=== PATIENT | female | born 1970 | race Asian ===

== ENCOUNTER 2018-10-04 16:13 | Inpatient (IN) | payer MEDICAID, OTHER ==
[~2018-10-04 16:13] MED LIST: ACET-2744 PO; ALBU17AE16 IH; AMLO5TAB66 PO; ESCI10TA PO; ESOM20CA31 PO; LISI-618 PO; LORA0.5T83 PO
[2018-10-04] MEDS ORDERED: LORazepam 2 MG TABLET PO PRN (17:00)
[2018-10-04] MEDS ORDERED: HALOPERIDOL 5 MG TABLET PO PRN (17:00)
[2018-10-04] MEDS ORDERED: ZOLPIDEM TARTRATE 10 MG TABLET PO PRN (17:00)
[2018-10-04] MEDS ORDERED: ATOR20TA86 PO (17:12)
[2018-10-04] MEDS ORDERED: AMLO-511 PO (17:12)
[2018-10-04] MEDS ORDERED: METO25 PO (17:12)
[2018-10-04] MEDS ORDERED: CLON-570 PO (17:12)
[2018-10-04] MEDS ORDERED: HYDR25TA PO (17:12)
[2018-10-04 18:15] VITALS: BP 144/96
[2018-10-04] MEDS ORDERED: GLUCAGON,HUMAN RECOMBINANT 1 MG VIAL IM PRN (20:15)
[2018-10-04] MEDS ORDERED: INSULIN LISPRO 100 UNITS/ML SQ PRN (20:15)
[2018-10-04 20:33] VITALS: BP 131/80
[2018-10-04] MEDS: IBUPROFEN 600 MG TABLET PO PRN (20:35)
[2018-10-05 03:07] VITALS: BP 136/78
[2018-10-05 06:24] LABS: GLUCOMETER DEV NAME(LOC) BV3S.; GLUCOSE,POINT OF CARE 81 MG/DL (70-110)
[2018-10-05 08:25] VITALS: BP 122/69
[2018-10-05] MEDS: LISINOPRIL 10 MG TABLET PO SCH ×2 (08:30→16:33)
[2018-10-05 08:39] LABS: BASOPHILS % (AUTO) 2.6 % (0.0-2.0); EOSINOPHILS % (AUTO) 2.7 % (1.0-6.0); HEMOGLOBIN 15.6 g/dL (12.0-16.0); LYMPHOCYTES # (AUTO) 1.6 K/uL (1.0-4.8); LYMPHOCYTES % (AUTO) 20.3 % (22.0-44.0); MEAN CORPUSCULAR HEMOGLOBIN 30.7 pg (26.0-34.0); MEAN CORPUSCULAR HGB CONC 33.1 G/dL (31.0-37.0); MEAN CORPUSCULAR VOLUME 93 fL (80-100); MONOCYTES # (AUTO) 0.4 K/uL (0.1-1.0); MONOCYTES % (AUTO) 5.5 % (2.0-9.0); NEUTROPHILS # (AUTO) 5.6 K/uL (1.8-7.7); NEUTROPHILS % (AUTO) 68.9 % (40.0-70.0); PLATELET COUNT (AUTO) 176 K/uL (150-450); RED BLOOD CELL COUNT(AUTO) 5.08 MIL/uL (4.00-5.20); RED CELL DISTRIBUTION WIDTH 13.1 % (11.5-14.5)
[2018-10-05 08:51] LABS: HEMOGLOBIN A1C 5.8 % (4.5-6.2)
[2018-10-05] MEDS ORDERED: NAPROXEN 500 MG TABLET PO PRN (09:00)
[2018-10-05 09:06] LABS: ALANINE AMINOTRANSFERASE 45 U/L (12-78); ALBUMIN 4.7 g/dL (3.4-5.0); ALKALINE PHOSPHATASE 63 U/L (46-116); ANION GAP 12 mmol/L (8-16); ASPARTATE AMINOTRANSFERASE 29 U/L (15-37); BILIRUBIN,TOTAL 0.7 mg/dL (0.1-1.0); CALCIUM, TOTAL 9.8 mg/dL (8.8-10.5); CARBON DIOXIDE 27 mmol/L (22-29); CHLORIDE 99 mmol/L (98-107); CHOL/HDL RATIO 1.8 (3.9-5.7); CHOLESTEROL 152 mg/dL (131-200); CREATININE 0.79 mg/dL (0.60-1.30); FREE T4 (FREE THYROXINE) 1.54 ng/dL (0.76-1.46); GLOMERULAR FILTR. RATE CALC > 60 mL/min (>60); GLUCOSE,RANDOM 75 mg/dL (70-110); HDL CHOLESTEROL 83 mg/dL (40-60); LDL CHOL (CALC.) 52 mg/dL (0-130); POTASSIUM 3.2 mmol/L (3.5-5.1); SODIUM SERUM 138 mmol/L (136-145); TOTAL PROTEIN, SERUM 8.8 g/dL (6.4-8.2); TRIGLYCERIDES 84 mg/dL (15-150); UREA NITROGEN, BLOOD 9 mg/dL (7-18)
[2018-10-05] MEDS: ATORVASTATIN CALCIUM 20 MG TABLET PO SCH (09:50)
[2018-10-05 10:00] VITALS: BP 120/83
[2018-10-05] MEDS: IBUPROFEN 600 MG TABLET PO PRN (10:06)
[2018-10-05] MEDS: SERTRALINE HCL 50 MG TABLET PO SCH (12:06)
[2018-10-05 12:20] LABS: GLUCOMETER DEV NAME(LOC) BV3S.; GLUCOSE,POINT OF CARE 108 MG/DL (70-110)
[2018-10-05] MEDS ORDERED: POTASSIUM CHLORIDE 20 MEQ ER TABLET PO ONE (14:30)
[2018-10-05 16:08] VITALS: BP 134/79
[2018-10-05] MEDS: DOCUSATE SODIUM 250 MG CAPSULE PO SCH (16:33)
[2018-10-05] MEDS: RisperiDONE 0.5 MG TABLET PO SCH (17:10)
[2018-10-05 21:04] LABS: GLUCOMETER DEV NAME(LOC) BV3S.; GLUCOSE,POINT OF CARE 104 MG/DL (70-110)
[2018-10-06 00:14] VITALS: BP 117/76
[2018-10-06 06:35] LABS: GLUCOMETER DEV NAME(LOC) BV3S.; GLUCOSE,POINT OF CARE 89 MG/DL (70-110)
[2018-10-06] MEDS ORDERED: POTASSIUM CHLORIDE 20 MEQ ER TABLET PO ONE (07:00)
[2018-10-06 08:21] VITALS: BP 147/84
[2018-10-06] MEDS: LISINOPRIL 10 MG TABLET PO SCH ×2 (09:31→16:54)
[2018-10-06] MEDS: DOCUSATE SODIUM 250 MG CAPSULE PO SCH (09:31)
[2018-10-06] MEDS: SERTRALINE HCL 50 MG TABLET PO SCH (09:31)
[2018-10-06] MEDS: RisperiDONE 0.5 MG TABLET PO SCH ×2 (09:31→16:54)
[2018-10-06] MEDS: ATORVASTATIN CALCIUM 20 MG TABLET PO SCH (09:32)
[2018-10-06 16:11] VITALS: BP 114/66
[2018-10-06 16:14] LABS: GLUCOMETER DEV NAME(LOC) BV3S.; GLUCOSE,POINT OF CARE 129 MG/DL (70-110)
[2018-10-07 05:39] LABS: GLUCOMETER DEV NAME(LOC) BV3S.; GLUCOSE,POINT OF CARE 128 MG/DL (70-110)
[2018-10-07 05:43] VITALS: BP 148/97
[2018-10-07 08:18] VITALS: BP 137/78
[2018-10-07] MEDS: SERTRALINE HCL 50 MG TABLET PO SCH (08:27)
[2018-10-07] MEDS: ATORVASTATIN CALCIUM 20 MG TABLET PO SCH (08:27)
[2018-10-07] MEDS: RisperiDONE 0.5 MG TABLET PO SCH (08:27)
[2018-10-07] MEDS: DOCUSATE SODIUM 250 MG CAPSULE PO SCH (08:27)
[2018-10-07] MEDS: LISINOPRIL 10 MG TABLET PO SCH ×2 (08:27→17:04)
[2018-10-07 08:47] LABS: BASOPHILS % (AUTO) 1.3 % (0.0-2.0); EOSINOPHILS % (AUTO) 3.8 % (1.0-6.0); HEMATOCRIT 44.7 % (36-46); HEMOGLOBIN 15.1 g/dL (12.0-16.0); LYMPHOCYTES # (AUTO) 1.8 K/uL (1.0-4.8); MEAN CORPUSCULAR HEMOGLOBIN 30.8 pg (26.0-34.0); MEAN CORPUSCULAR HGB CONC 33.8 G/dL (31.0-37.0); MEAN CORPUSCULAR VOLUME 91 fL (80-100); MONOCYTES # (AUTO) 0.6 K/uL (0.1-1.0); MONOCYTES % (AUTO) 5.3 % (2.0-9.0); NEUTROPHILS # (AUTO) 7.6 K/uL (1.8-7.7); NEUTROPHILS % (AUTO) 72.6 % (40.0-70.0); PLATELET COUNT (AUTO) 154 K/uL (150-450); RED BLOOD CELL COUNT(AUTO) 4.91 MIL/uL (4.00-5.20); RED CELL DISTRIBUTION WIDTH 13.3 % (11.5-14.5)
[2018-10-07 09:04] LABS: ANION GAP 7 mmol/L (8-16); CALCIUM, TOTAL 9.1 mg/dL (8.8-10.5); CARBON DIOXIDE 29 mmol/L (22-29); CHLORIDE 104 mmol/L (98-107); CREATININE 0.81 mg/dL (0.60-1.30); GLOMERULAR FILTR. RATE CALC > 60 mL/min (>60); GLUCOSE,RANDOM 121 mg/dL (70-110); POTASSIUM 3.8 mmol/L (3.5-5.1); SODIUM SERUM 140 mmol/L (136-145); UREA NITROGEN, BLOOD 13 mg/dL (7-18)
[2018-10-07] MEDS: RisperiDONE 1 MG TABLET PO SCH (17:03)
[2018-10-07 17:10] LABS: GLUCOMETER DEV NAME(LOC) BV3S.; GLUCOSE,POINT OF CARE 106 MG/DL (70-110)
[2018-10-07 17:25] VITALS: BP 128/68
[2018-10-08 05:41] VITALS: BP 140/81
[2018-10-08 06:24] LABS: GLUCOMETER DEV NAME(LOC) BV3S.; GLUCOSE,POINT OF CARE 116 MG/DL (70-110)
[2018-10-08] MEDS: SERTRALINE HCL 50 MG TABLET PO SCH (08:10)
[2018-10-08] MEDS: DOCUSATE SODIUM 250 MG CAPSULE PO SCH (08:10)
[2018-10-08] MEDS: LISINOPRIL 10 MG TABLET PO SCH ×2 (08:10→16:40)
[2018-10-08] MEDS: RisperiDONE 1 MG TABLET PO SCH (08:14)
[2018-10-08] MEDS: ATORVASTATIN CALCIUM 20 MG TABLET PO SCH (08:15)
[2018-10-08 08:24] VITALS: BP 144/87
[2018-10-08 16:09] VITALS: BP 143/97
[2018-10-08 16:34] LABS: GLUCOMETER DEV NAME(LOC) BV3S.; GLUCOSE,POINT OF CARE 114 MG/DL (70-110)
[2018-10-08] MEDS: RisperiDONE 2 MG TABLET PO SCH (16:40)
[2018-10-09] VITALS (8 sets, daily range): BP systolic 132–152; BP diastolic 82–107
[2018-10-09 06:10] LABS: GLUCOMETER DEV NAME(LOC) BV3S.; GLUCOSE,POINT OF CARE 94 MG/DL (70-110)
[2018-10-09] MEDS ORDERED: CloNIDine HCL 0.1 MG TABLET PO PRN (08:30)
[2018-10-09 08:58] LABS: APPEARANCE,URINE CLOUDY (CLEAR); BILIRUBIN,URINE NEGATIVE (NEGATIVE); GLUCOSE, URINE (UA) NEGATIVE (NEGATIVE); KETONES,URINE 15 mg/dL (NEGATIVE); LEUKOCYTE ESTERASE ,URINE LARGE (NEGATIVE); NITRATE,URINE NEGATIVE (NEGATIVE); OCCULT BLOOD,URINE TRACE (NEGATIVE); PROTEIN,URINE NEGATIVE (NEGATIVE); UROBILINOGEN,URINE 0.2 mg/dL (<=1.0)
[2018-10-09 09:40] LABS: RBC,URINE 0-2 /HPF (0-2)
[2018-10-09 09:41] LABS: BACTERIA,URINE Few /HPF (None Seen); SQUAMOUS EPITHELIAL CELL,UR Few /LPF (None Seen); WBC,URINE 26-50 /HPF (0-5)
[2018-10-09] MEDS: ATORVASTATIN CALCIUM 20 MG TABLET PO SCH (09:47)
[2018-10-09] MEDS: LISINOPRIL 10 MG TABLET PO SCH ×2 (09:47→17:09)
[2018-10-09] MEDS: RisperiDONE 2 MG TABLET PO SCH (09:47)
[2018-10-09] MEDS: DOCUSATE SODIUM 250 MG CAPSULE PO SCH (09:47)
[2018-10-09] MEDS: SERTRALINE HCL 50 MG TABLET PO SCH (09:48)
[2018-10-09] MEDS: RisperiDONE 3 MG TABLET PO SCH (17:09)
[2018-10-09 17:50] LABS: GLUCOMETER DEV NAME(LOC) BV3S.; GLUCOSE,POINT OF CARE 108 MG/DL (70-110)
[2018-10-10 06:04] LABS: GLUCOMETER DEV NAME(LOC) BV3S.; GLUCOSE,POINT OF CARE 114 MG/DL (70-110)
[2018-10-10 06:16] VITALS: BP 140/85
[2018-10-10 08:13] VITALS: BP 121/70
[2018-10-10] MEDS: ATORVASTATIN CALCIUM 20 MG TABLET PO SCH (08:45)
[2018-10-10] MEDS: RisperiDONE 3 MG TABLET PO SCH ×2 (08:46→16:57)
[2018-10-10] MEDS: SERTRALINE HCL 50 MG TABLET PO SCH (08:46)
[2018-10-10] MEDS: LISINOPRIL 10 MG TABLET PO SCH ×2 (08:46→16:57)
[2018-10-10] MEDS: DOCUSATE SODIUM 250 MG CAPSULE PO SCH (08:46)
[2018-10-10 16:09] VITALS: BP 111/60
[2018-10-10] MEDS: CIPROFLOXACIN HCL 500 MG TABLET PO SCH (16:25)
[2018-10-10 18:14] LABS: GLUCOMETER DEV NAME(LOC) BV3S.; GLUCOSE,POINT OF CARE 89 MG/DL (70-110)
[2018-10-11 06:21] VITALS: BP 145/78
[2018-10-11 06:24] LABS: GLUCOMETER DEV NAME(LOC) BV3S.; GLUCOSE,POINT OF CARE 106 MG/DL (70-110)
[2018-10-11 08:19] VITALS: BP 144/93
[2018-10-11] MEDS: CIPROFLOXACIN HCL 500 MG TABLET PO SCH ×2 (08:38→16:14)
[2018-10-11] MEDS: DOCUSATE SODIUM 250 MG CAPSULE PO SCH (08:38)
[2018-10-11] MEDS: RisperiDONE 3 MG TABLET PO SCH ×2 (08:38→17:06)
[2018-10-11] MEDS: LISINOPRIL 10 MG TABLET PO SCH ×2 (08:38→17:06)
[2018-10-11] MEDS: ATORVASTATIN CALCIUM 20 MG TABLET PO SCH (08:39)
[2018-10-11] MEDS: SERTRALINE HCL 50 MG TABLET PO SCH (08:39)
[2018-10-11 16:21] VITALS: BP 146/96
[2018-10-11 17:35] LABS: GLUCOMETER DEV NAME(LOC) BV3S.; GLUCOSE,POINT OF CARE 87 MG/DL (70-110)
[2018-10-12 06:00] VITALS: BP 143/96
[2018-10-12 06:30] LABS: GLUCOMETER DEV NAME(LOC) BV3S.; GLUCOSE,POINT OF CARE 91 MG/DL (70-110)
[2018-10-12 08:11] VITALS: BP 133/84
[2018-10-12] MEDS: CIPROFLOXACIN HCL 500 MG TABLET PO SCH ×2 (08:20→16:20)
[2018-10-12] MEDS: RisperiDONE 3 MG TABLET PO SCH ×2 (08:20→16:20)
[2018-10-12] MEDS: LISINOPRIL 10 MG TABLET PO SCH ×2 (08:20→16:20)
[2018-10-12] MEDS: ATORVASTATIN CALCIUM 20 MG TABLET PO SCH (08:20)
[2018-10-12] MEDS: DOCUSATE SODIUM 250 MG CAPSULE PO SCH (08:20)
[2018-10-12] MEDS: SERTRALINE HCL 50 MG TABLET PO SCH (08:20)
[2018-10-12 16:11] VITALS: BP 125/88
[2018-10-12 17:10] LABS: GLUCOMETER DEV NAME(LOC) BV3S.; GLUCOSE,POINT OF CARE 86 MG/DL (70-110)
[2018-10-13 05:56] VITALS: BP 136/83
[2018-10-13 06:39] LABS: GLUCOMETER DEV NAME(LOC) BV3N.; GLUCOSE,POINT OF CARE 97 MG/DL (70-110)
[2018-10-13 08:17] VITALS: BP 138/78
[2018-10-13] MEDS: CIPROFLOXACIN HCL 500 MG TABLET PO SCH (08:41)
[2018-10-13] MEDS: LISINOPRIL 10 MG TABLET PO SCH (08:41)
[2018-10-13] MEDS: RisperiDONE 3 MG TABLET PO SCH (08:42)
[2018-10-13] MEDS: SERTRALINE HCL 50 MG TABLET PO SCH (08:42)
[2018-10-13] MEDS: DOCUSATE SODIUM 250 MG CAPSULE PO SCH (08:42)
[2018-10-13] MEDS: ATORVASTATIN CALCIUM 20 MG TABLET PO SCH (10:29)
[2018-10-13 12:00] LABS: GLUCOMETER DEV NAME(LOC) BV3S.; GLUCOSE,POINT OF CARE 101 MG/DL (70-110)
[2018-10-13] MEDS ORDERED: CIPROFLOXACIN HCL 500 MG TABLET PO ONE (13:45)
[2018-10-13] MEDS ORDERED: SERT50TA12 PO (13:50)
[2018-10-13] MEDS ORDERED: RISP3 PO (13:50)
[2018-10-13] MEDS ORDERED: LISI-661 PO (13:52)
== END 2018-10-13 14:00 | disposition home or self-care (01) | DRG 750 ==
LOC: B3A 16:54
PROVIDERS: ADMIT Psychiatry & Neurology Psychiatry; ATTEND Psychiatry & Neurology Psychiatry
DX: F25.0 Schizoaffective disorder, bipolar type (principal); E11.9 Type 2 diabetes mellitus without complications; F41.9 Anxiety disorder, unspecified; I10 Essential (primary) hypertension; J44.9 Chronic obstructive pulmonary disease, unspecified; K21.9 Gastro-esophageal reflux disease without esophagitis; M19.90 Unspecified osteoarthritis, unspecified site; Z88.6 Allergy status to analgesic agent; Z91.5 Personal history of self-harm; Z88.0 Allergy status to penicillin
CPT/HCPCS: 83036; 83525; 84439; 84443; 87086